=== PATIENT | male | born 1990 | race Caucasian/White ===

== ENCOUNTER 2025-03-28 17:43 | Inpatient (IN) | payer BC, SELFPAY ==
[2025-03-28] VITALS (18 sets, daily range): BP systolic 169–212; BP diastolic 98–151; BMI 37.7; BMI 34.8
[2025-03-28 12:19] LABS: Hematocrit 39.4 % (39.0-52.0); Hemoglobin 14.7 g/dL (13.0-18.0); Mean Corp Hgb Conc. 37.3 g/dL (33.0-37.0); Mean Corpuscular Volume 83.5 fL (80.0-94.0); Nucleated Red Blood Cells % 0 % (-); Platelet Count 307 10^3/uL (130-400); Red Cell Dist. Width 11.9 % (11.5-14.5)
[2025-03-28 12:33] LABS: ALT (SGPT) 19 U/L (0-50); AST (SGOT) 28 U/L (17-59); Albumin 4.9 g/dl (3.5-5.0); Alkaline Phosphatase 56 U/L (38-126); Blood Urea Nitrogen 17 mg/dl (9-20); Calcium 10.0 mg/dl (8.4-10.2); Carbon Dioxide 26 mmol/L (22-30); Chloride 103 mmol/L (98-107); Glucose 148 mg/dl (70-99); Potassium 3.9 mmol/L (3.5-5.1); Sodium 139 mmol/L (135-145); Total Protein 7.9 g/dl (6.3-8.2); eGFR > 60.00
[2025-03-28 12:44] LABS: Troponin I < 0.012 ng/ml
--- NOTE | 2025-03-28 13:16 | W.PN.CD ---
Addendum entered and electronically signed by Chandan Young MD 03/28/25 15:09:
Note if additional IV meds for hypertension required then could consider IV Cardene
Addendum entered and electronically signed by Chandan Young MD 03/28/25 15:08:
I saw and examined the patient.
The QUALITY ANALYST's note was reviewed and I agree with the note.
35-year-old male with history of hypertension hypercholesterolemia, LVH, cognitive delay who was seen in the office by today. Patient has been noncompliant with medical therapy and has not been on his antihypertensive medications for
approximately 2 years. Patient had been on multidrug therapy with atenolol, amlodipine and olmesartan. Patient denies having any symptoms. ECG showing sinus rhythm and a deep anterior T wave inversions as well as T wave inversions in inferior and
lateral leads. Some similarities to previous ECG from 10/27/2018 but T wave versions are even more prominent than on the prior ECG.
.
Hypertensive urgency in setting of noncompliance
- Patient has been off medical therapy for nearly 2 years
- Currently denying symptoms
- IV labetalol
- Can restart olmesartan which she has tolerated in the past.
- Monitor blood pressures closely and would be cautious not to drop blood pressure too quickly.
- Follow-up echocardiogram
- Additional assessment for secondary causes. Patient had renal artery ultrasound in the past additional labs including renin and aldosterone and metanephrines ordered
.
LVH. Reassess with echo
Original Note:
Today's Communication / Plan
-
*This is the consultation summary. Please see scanned full consultation.
Echocardiogram
Start BP management
Impression / Plan
-
I/P: 35M with hypertension, inappropriate sinus tachycardia, dyslipidemia with hypertriglyceridemia, cognitive delay, and former smoker presented to the cardiology office. He was found to have severe hypertension and diffuse T wave inversion on
EKG. He discontinued his medications when he no longer had insurance.
Primary greenhouse superintendent: Dr. Caldwell
Hypertensive urgency
- No renal artery stenosis by ultrasound in 2019
- Mild cLVH on prior echocardiogram
- Prior regimen: atenolol 100 mg daily and amlodipine�olmesartan 10-20 mg daily
- Start Labetalol IV & consider adding olmesartan
- Renin/Tao & metanephrines added
Abnormal EKG
- Diffuse T wave inversion, possible LVH with strain
- Troponin <0.012, chest pain-free
- Echocardiogram
Inappropriate sinus tachycardia
- [place] of approximately 46% in the past
- Was on atenolol 100 mg daily prior to self discontinuation
Dyslipidemia with hypertriglyceridemia
- Fasting lipid panel in a.m.
Cognitive delay, negative genetic testing, mother is concerned for Chirag syndrome
Hyperglycemia, per primary
Former smoker, continue cessation recommended
SUBJECTIVE:
Denies chest pain, dizziness, and syncope/presyncope with exertional activities and at rest.
Physical Exam
Vital Signs/Labs
Vital Signs
Temp Pulse Resp BP Pulse Ox
98.5 F 85 18 205/131 97
03/28/25 11:56 03/28/25 11:56 03/28/25 11:56 03/28/25 11:56 03/28/25 11:56
03/28/25 12:05
03/28/25 12:05
LAB Results
03/28/25
12:05
Troponin I < 0.012
Physical Exam
Constitutional: No acute distress and Comfortable
EENT: Anicteric and Moist mucous membranes
Cardiovascular: Rhythm & rate is regular, Pedal edema is absent and S1S2 is normal
Respiratory: Respiratory effort normal and Lungs clear to auscul.
GI: Soft, Distention absent, Flat and Non tender
Neuro/Psych: Alert and Oriented
Other: Skin (warm and dry without edema)
Data Reviewed
-
Date of Service: March 28, 2025
EKG: Report Reviewed by me
Echo: Ordered by me
Labs: Labs Reviewed by me and Labs Ordered by me
Old Records: Reviewed
--- NOTE | 2025-03-28 14:22 | CARDSERVLU ---
Echocardiogram with [facility] completed after protocol screening completed. Allergies verified.
Patent IV site: __left AC__
IV site flushed with 0.9% NaCl pre and post administration.
Diluted bolus method utilized to enhance visualization of ventricular lomax.
Total volume given: _4.0___ mL
Patient tolerated all procedures well without complications.
[2025-03-28] MEDS: TRANDATE 10 MG IV ×2 (14:43→23:54)
[2025-03-28 14:44] LABS: Glycohemoglobin (HgbA1c) 5.4 % (4.0-5.6)
--- NOTE | 2025-03-28 15:43 | ED.GENMED ---
History of Present Illness
General
Chief Complaint: Blood Pressure Problem
Time Seen by Provider: 03/28/25 13:21
History of Present Illness
History of Present Illness:
35-year-old male with past medical history of hypertension presenting from cardiology office for elevated blood pressure. Patient notes that he has not been taking his blood pressure medication for the past 2 years due to insurance reasons. He saw
cardiology for the first time in 4 years today, or concern for new systolic murmur, elevated blood pressure and some EKG changes. Patient subsequently sent to the hospital for concern of hypertensive urgency. Patient does have some history of
slight cognitive impairment, however is high functioning. Patient currently is asymptomatic. He denies chest pain or difficulty breathing. He denies weakness or numbness to his extremities or additional acute medical complaints
Past History
Past History
ED Past Medical History: Other (Hearing impaired )
ED Past Surgical History: Orthopedic (Right shoulder surgery ) and Other (Bilateral ear surgeries )
Social History
Tobacco: Non-smoker
Personal: Single
Living: with family
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
Phy Exam
Physical Exam
Physical Exam:
General: Well-appearing, no clinical signs of dehydration, nontoxic and in no acute distress
HEENT: protecting airway
Neck: appears supple
CV: Normal heart rate, regular rhythm
Resp: No accessory muscle use, no increased work of breathing
Abd: No distention
Extremities: No deformities, no swelling
Neuro: alert, no focal neurologic deficit
: deferred
Rectal: deferred
Psych: Normal affect
Skin: Intact
Course
Orders/Labs/Results
Orders:
Orders
03/28/25 12:01
Electrocardiogram (*1) Urgent
Reason for Study: Other
Other Reason for Exam: Hypertension
EKG- Treatment ONCE
03/28/25 12:05
CMP [Comprehensive Metabolic Panel] Urgent
Complete Blood Count/With Diff Urgent
Glycohemoglobin (HgbA1c) Urgent
Troponin I Urgent
03/28/25 13:14
Echo 2D MMode Color/Doppler Urgent
Reason for Study: T wave inversion, HTN Urgency
CXR2 [CR Chest - 2 Views ] Routine
Comment:
Reason For Exam: EGAN
03/28/25 13:55
Labetalol HCl [Trandate] 10 mg IV NOW STA
03/28/25 13:56
Add On- LAB Routine
Tests Added?: Hgba1c
03/28/25 14:25
Aldosterone/Renin Act Ratio [S] Urgent
Metanephrines, Plasma (free) [S] Urgent
Abnormal Lab Results
03/28/25
12:05
MCH 31.1 H pg
(27.0-31.0)
MCHC 37.3 H g/dL
(33.0-37.0)
Glucose 148 H mg/dl
(70-99)
03/28/25 12:05
03/28/25 12:05
Vital Signs
Initial and Last Documented VS:
Initial Vital Signs
Temp Pulse Resp BP Pulse Ox
98.5 F 85 18 205/131 97
03/28/25 11:56 03/28/25 11:56 03/28/25 11:56 03/28/25 11:56 03/28/25 11:56
Last Documented Vital Signs
Temp Pulse Resp BP Pulse Ox
98.5 F 71 18 186/111 95
03/28/25 11:56 03/28/25 15:15 03/28/25 15:15 03/28/25 15:00 03/28/25 15:15
MDM/Problems Addressed
MDM/Problems Addressed:
35-year-old male with history of untreated hypertension presenting for elevated blood pressure from cardiology office. Vital signs on arrival significant for high blood pressure.
On arrival, patient currently asymptomatic, however is hypertensive. EKG obtained on arrival shows deep T wave inversions to the lateral and inferior leads which appears acutely changed from prior EKG in 2019. At this time primary concern is for
hypertensive urgency versus emergency. Reassuring that patient is asymptomatic. Cardiology at bedside on patient's arrival given that he was sent in from the cardiology office. Plan for echo, blood pressure control, laboratory analysis, chest
x-ray imaging.
15:40 -Blood pressure slightly improved after labetalol. Per cardiology echo is reassuring and chest x-ray without acute cardiopulmonary disease. Per cardiology recommendation for admission for blood pressure control and continued monitoring.
Plan for hospitalist admission
*Pulse Oximetry
SaO2: 95
Oxygen Mode of Delivery: Room air
Patient hypoxic: no
*EKG
Interpreted by ED Provider?: Yes
EKG Intrepretation Date: 03/28/25
EKG Intrepretation Time: 15:47
Interpretation: abnormal
Comparison EKG: changes noted (10/27/18)
Heart Rate: 84
Rate: normal
Rhythm: sinus
[place]: normal axis
Interval: normal interval
QRS Pattern: wide non-specific
Ischemia: T-wave inversion
*Critical Care Note
Total Time (30-74mins, 75-104mins- exclusive of procedures): Not Applicable
ED Attending Note
-
Portions of this chart may have been created with voice recognition software.� Occasional wrong word or��sound alike� substitutions may have occurred due to the inherent limitations of voice recognition software.
Discharge Plan
Departure
Patient Disposition: Admit
Date of Disposition: 03/28/25
Time of Disposition: 15:43
Presentation/result/management discussed w/ accepting MD/DO: Hospitalist
Patient with high blood pressure during this ER visit?: Yes
Discharge Problem:
Hypertensive urgency
Prescriptions:
No Action
amlodipine 5 MG tablet
5 mg PO DAILY Qty: 14 0RF
Referrals:
NONE,* [Family Provider, Internal Medicine]
Interventions
Interventions:
*Risk Screen - Suicide Last Done: 03/28/25 14:13
*General Assessment Last Done: 03/28/25 14:13
*Neglect/Abuse Screening Last Done: 03/28/25 14:13
*ED- Fall Risk Assessment Last Done: 03/28/25 14:13
*ED COVID-19 Vaccine History Last Done: 03/28/25 14:13
ED- Cardiac Assessment Last Done: 03/28/25 14:13
ED- Neurological Assessment Last Done: 03/28/25 14:13
ED- Pulmonary Assessment Last Done: 03/28/25 14:13
Discharge Date and Time
Print Language: GREENLANDIC
--- NOTE | 2025-03-28 17:10 | W.PN.UPDATE ---
Update Note
Progress Note Update
35-year-old male with primary hypertension, dyslipidemia, inappropriate sinus tachycardia, mild cognitive impairment, obesity is presenting to the hospital today with elevated blood pressure. Patient reports has not been taking medication for 2
years due to insurance purposes, saw cardiology in the office today for the first time in 4 years and was found to have elevated blood pressure with some EKG change at the time. Was sent into the hospital for concerns of hypertensive urgency.
Denies any symptoms such as chest pain, dyspnea, lightheadedness, pain. Of note has family history of sudden cardiac , attended a this past Thursday. Upon arrival blood pressure 212/124 mmHg, diastolic pressure as high as 151 mmHg
though otherwise hemodynamically stable, afebrile, on room air. Labs unremarkable. ECG with NSR, T wave inversions in the lateral leads. Troponin negative. Chest x-ray unremarkable for acute processes. Was given 10 mg IV labetalol in the ED
with blood pressure improvement down to 186/111 mmHg.
AO x 4, NAD, obese. NC/AT, MMM, wide set eyes. Benign cardiopulmonary exam, abdomen benign. No edema or JVD. Palpable pulses. Skin warm and dry. Nonfocal exam.
#Hypertensive urgency. Suspected primary hypertension with nonadherence to medications though unable to rule out secondary causes with high blood pressure at early age. Biochemistry not consistent with hyperaldosteronism though still cannot rule
out. Secondary hypertensive workup with ARR, plasma metanephrines sent on arrival, will follow-up results. Started on as needed IV labetalol. Will start olmesartan 10 mg now and resume amlodipine 5 mg daily. Goal reduction of BP by 25% within
the first 24 hours. Anticipate delayed onset of amlodipine effect. Continue IV labetalol as needed for SBP >170 mmHg.
#Abnormal ECG. T wave inversions laterally, troponin negative x 1. Suspect that this could be a LV strain pattern related to his significant hypertension. Cardiology consulted. Monitor on telemetry for now
#Question Chirag syndrome. Mother with high suspicion for Chirag syndrome however genetic testing in the 90s apparently negative. Predictive value would likely better on more modern genetic testing, may benefit from OP repeat testing.
Diet -- No added salt (<4g)
DVT PPHx -- SQ Lovenox
CODE STATUS -- Full code
I will be admitting Jeremy Harris to telemetry. He is at high risk for worsening morbidity due to acute accelerated hypertension. He will require intensive monitoring of his vitals and readjustment of his antihypertensive regimen. I have
discussed this case with the ED attending and waterproofing mixer. I reviewed the case with the resident and agree with all documentation unless otherwise specified.
Please see full resident H&P for more detail, once available
--- NOTE | 2025-03-28 17:16 | HPS.HSE ---
Family Physician
-
Family Physician: NONE
Chief Complaint
-
High blood pressure
History of Present Illness
35-year-old male with past medical history of hypertension, depression, anxiety, bilateral hearing impairment worse on left side was sent by his cost specialist to ED for having high blood pressure. He used to manage his HTN until 2 years ago with
Atenolol and Olmesartan. He changed his job and did not have insurance so he stopped taking his BP medications. ^ months ago when he went to see a dentist they told him about his high BP and did not proceed with procedure that's how he end up
getting an appt with cost specialist. This week he was having a stressful week because of his cousine's sudden from heart attack. This morning he reports feeling fine like his usual and did not have any symptoms. Usually he drinks 3 cokes a day
but did not have any today. He does not smoke or drink alcohol. He denies headache, blurred vision, chest pain or SOB.
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
Medical History
Past Medical History
Past Medical History: Reports HTN and Psychiatric
Additional Past Medical History:
depression
anxiety
difficulty falling a sleep
Past Surgical History: Reports Other
Additional Past Surgical History:
Right shoulder surgery for nerve impingement (nerve decompression) in 2009
Sinus surgery for cystectomy in 2022
Ear tubes 1-2 y/o
Social History
Tobacco: Non-smoker
Alcohol: None
Drug: Marijuana (medical marijuana)
Living: With Family
Employment: Employed
Family History
Family History: Hypertension and Other (Father-hypertension Dx teenager, multiple strokes, afib )
Allergies / Home Medications
Allergies reflects when Allergies were last updated in [facility].
Home Medications with original date entered in [facility]
Allergy/Medication List:
None
Review of Systems
-
History Source: Patient
Constitutional: Reports No Symptoms
EENT: Reports Other (Hearing impaired bilaterally)
Respiratory: Reports No Symptoms
Cardiac: Reports No Symptoms
Abdomen/GI: Reports No Symptoms
: Reports No Symptoms
Musculoskeletal: Reports No Symptoms
Skin: Reports No Symptoms
Neurological: Reports No Symptoms
Psych: Reports Calm
Physical Exam
Vital Signs
Vital Signs
Temp Pulse Resp BP Pulse Ox
98.5 F 94 15 189/116 96
03/28/25 11:56 03/28/25 16:15 03/28/25 16:15 03/28/25 16:10 03/28/25 16:15
Physical Exam
General: Well Developed, Well Nourished, No Apparent Distress and Comfortable
HEENT: NormoCephalic and Hearing Impaired
Respiratory: Clear
Cardiac: S1/S2 and Regular Rhythm
Breast: Deferred by me
GI: Soft, Non Tender, Non Distended and Normal Bowel Sounds
Rectal: Deferred by Provider
Genito-urinary: Deferred by me
Musculoskeletal: No Clubbing, No Cyanosis and No Edema
Skin: Warm
Neuro: AO x 3
Psych: Calm
Laboratory Results
-
03/28/25 12:05
03/28/25 12:05
Laboratory Results
Total Bilirubin 0.7 mg/dl (0.2-1.3) 03/28/25 12:05
AST 28 U/L (17-59) 03/28/25 12:05
ALT 19 U/L (0-50) 03/28/25 12:05
Alkaline Phosphatase 56 U/L (38-126) 03/28/25 12:05
Troponin I < 0.012 ng/ml 03/28/25 12:05
Impression/Plan
-
IMPRESSION: 35-year-old male with past medical history of hypertension, depression, anxiety, bilateral hearing impairment worse on left side was sent by his cost specialist to ED for having very high blood pressure.
PLAN
#Hypertensive urgency
#Essential Hypertension vs secondary hypertension
-BP was 189/116 elevated without acute evidence of end organ damage
-Received 10mg IV Labetalol at ED. Continue as needed if SBP >170
-Admit to telemetry
-Will restart previous antihypertensive meds. Goal is gradual reduction by 25% first 24 hours. Goal BP <160/100.
-Start Olmesartan 10mg QD
-Start Amlodipine 5mg QD
-Check AM cortisol level- r/o [place] syndrome
-Aldosterone/Renin ratio was sent at ED- will follow results
-Low sodium diet (<4g)
-Monitor BP
ECG
-ST and MARKED T WAVE ABNORMALITY CONSIDER ANTEROLATERAL ISCHEMIA
Troponin negative
T wave inversions especially on precordial and lateral leads suspect HTN related LV strain pattern
Cardiology consulted
ECHO
1. Normal left ventricular systolic function.
2. Estimated ejection fraction 60 to 65%.
3. Mild concentric LVH.
Doppler Study US from 2019
-Suggest no Renal artery stenosis
#??Chirag syndrome
-Mom suspicious about Chirag syndrome because of his phenotype
-Genetic testing was done in 's and was negative
-PPV might be higher in modern setting
#Anxiety
#Mild Depression
-Continue Sertraline 100mg
-Continue THC
#Insomnia
-Continue Risperidone
DVT prophylaxis: SQ Lovenox
Full code
[2025-03-28] MEDS: LOVENOX 40 MG SC (20:03)
[2025-03-28] MEDS: NORVASC 5 MG PO (20:13)
[2025-03-28] MEDS: BENICAR 10 MG PO (20:14)
[2025-03-28] MEDS: RISPERDAL 2 MG PO (21:43)
--- NOTE | 2025-03-29 02:35 | DOWNTIME ---
There was a [employer] Downtime on 03/29/2025 from 0100 to 03/29/2025 at 0215. Downtime documentation of patient's care, including medication administrations, has been reconciled in the electronic record per guidelines. Refer to the
patient's paper chart under the miscellaneous tab to see printed paper medication records and downtime forms.
[2025-03-29 03:00] VITALS: BP 140/88
[2025-03-29 03:48] VITALS: BMI 34.4
[2025-03-29 06:00] VITALS: BMI 34.4
[2025-03-29 06:45] LABS: Hematocrit 38.7 % (39.0-52.0); Hemoglobin 14.3 g/dL (13.0-18.0); Mean Corp Hgb Conc. 37.0 g/dL (33.0-37.0); Mean Corpuscular Volume 85.6 fL (80.0-94.0); Platelet Count 291 10^3/uL (130-400); Red Cell Dist. Width 12.0 % (11.5-14.5)
--- NOTE | 2025-03-29 07:20 | W.PN.HOSP.TC ---
Today's Communication/Plan
-
Continue Anti-htn meds
Discharge today
Assessment / Plan
Assessment / Plan
IMPRESSION: 35-year-old male with past medical history of hypertension, depression, anxiety, bilateral hearing impairment worse on left side was sent by his tack maker to ED for having very high blood pressure.
PLAN
#Hypertensive urgency
#Essential Hypertension vs secondary hypertension
-BP was 189/116 elevated without acute evidence of end organ damage. He discontinued his anti-HTN meds 2 years ago.
-Received 10mg IV Labetalol at ED. Continue as needed if SBP >170
-Admit to telemetry
-Will restart previous antihypertensive meds. Goal is gradual reduction by 25% first 24 hours. Goal BP <160/100.
-Start Olmesartan 10mg QD
-Start Amlodipine 5mg QD
-Check AM cortisol level- r/o [place] syndrome
-Aldosterone/Renin ratio was sent at ED- will follow results
-Low sodium diet (<2g)
-Monitor BP
-Overnight his BP was elevated up to 206/120. Currently well controlled 140/88.
ECG
-ST and MARKED T WAVE ABNORMALITY CONSIDER ANTEROLATERAL ISCHEMIA
Troponin negative
T wave inversions especially on precordial and lateral leads suspect HTN related LV strain pattern
Cardiology consulted
ECHO
1. Normal left ventricular systolic function.
2. Estimated ejection fraction 60 to 65%.
3. Mild concentric LVH.
Doppler Study US from 2019
-Suggest no Renal artery stenosis
#??Chirag syndrome
-Mom suspicious about Chirag syndrome because of his phenotype
-Genetic testing was done in s and was negative
-PPV might be higher in modern setting- recommend genetics test
#Anxiety
#Mild Depression
-Continue Sertraline 100mg
-Continue THC
#Insomnia
-Continue Risperidone
DVT prophylaxis: SQ Lovenox
Full code
Anticipated Discharge: Today
Subjective/Interval History
-
Date of Service: March 29, 2025
He was able to sleep good. He reports feeling good. HE does not have any complaints. Denies chest pain, headache, palpitatioons, sob.
Objective Data
-
Labs:
Laboratory Results
03/29/25
06:19
WBC 5.9
Hgb 14.3
Hct 38.7 L
Plt Count 291
Sodium Pending
Potassium Pending
Chloride Pending
Carbon Dioxide Pending
BUN Pending
Creatinine Pending
Glucose Pending
Calcium Pending
Vital Signs:
Vital Signs
Temp Pulse Resp BP Pulse Ox
97.6 F 73 16 140/88 96
03/29/25 03:00 03/29/25 03:00 03/29/25 03:00 03/29/25 03:00 03/29/25 03:00
Review of Systems
-
History Source: Patient
Constitutional: Reports No Symptoms
EENT: Reports No Symptoms Reported and Hearing Loss (bl hearing impairment)
Respiratory: Reports No Symptoms
Cardiac: Reports No Symptoms
Abdomen/GI: Reports No Symptoms
Genitourinary: Reports No Symptoms
Musculoskeletal: Reports No Symptoms
Skin: Reports No Symptoms
Neuro: Reports No Symptoms
Physical Exam
-
General: Well Developed, Well Nourished, No Apparent Distress and Conversant
HEENT: Normocephalic and Atraumatic
Respiratory: Clear to Auscultation
Cardiac: Regular Rhythm and S1/S2
Breast: Deferred by me
GI: Soft, Nontender and Nondistended
Musculoskeletal: No Clubbing, No Cyanosis and No Edema
Skin: Warm and Dry
Neuro: AO x 3
Psych: Calm
[2025-03-29 07:22] LABS: Blood Urea Nitrogen 16 mg/dl (9-20); Calcium 9.1 mg/dl (8.4-10.2); Carbon Dioxide 26 mmol/L (22-30); Chloride 104 mmol/L (98-107); Estimated Creatinine Clearance > 125 ml/min; Glucose 98 mg/dl (70-99); Potassium 3.8 mmol/L (3.5-5.1); Sodium 138 mmol/L (135-145); eGFR > 60.00
[2025-03-29 07:30] VITALS: BP 137/83
[2025-03-29 07:49] LABS: Cortisol, Random 9.0 ug/dl
[2025-03-29] MEDS: BENICAR 10 MG PO (08:15)
[2025-03-29] MEDS: NORVASC 5 MG PO (08:16)
[2025-03-29] MEDS: ZOLOFT 100 MG PO (08:16)
--- NOTE | 2025-03-29 10:28 | W.PN.CD ---
Today's Communication / Plan
-
BP has improved with addition of olmesartan 10mg daily, amlodipine 5mg daily: continue
discharge planning
please call us with additional questions
Impression / Plan
-
I/P: 35M with hypertension, inappropriate sinus tachycardia, dyslipidemia with hypertriglyceridemia, cognitive delay, and former smoker presented to the cardiology office. He was found to have severe hypertension and diffuse T wave inversion on
EKG. He discontinued his medications when he no longer had insurance.
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 Caldwell
Hypertensive urgency-- in setting of med non-compliance--now resolved with med mgmt
- No renal artery stenosis by ultrasound in 2019
- Mild cLVH on prior echo: echo this admission EF 60-65%, no sig valve disease
- Renin/Tao & metanephrines added
- BP has improved with addition of olmesartan 10mg daily, amlodipine 5mg daily: continue
Abnormal EKG
- Diffuse T wave inversion, possible LVH with strain
- Troponin <0.012, chest pain-free
- Echocardiogram stable with LVH--hypertensive heart disease with LVH
Inappropriate sinus tachycardia--HR trend normal on tele
- [place] of approximately 46% in the past
- Was on atenolol 100 mg daily prior to self discontinuation: remain off of this med
Dyslipidemia with hypertriglyceridemia
- outpatient f/u
Cognitive delay, negative genetic testing, mother is concerned for Chirag syndrome
Hyperglycemia, per primary
Former smoker, continue cessation recommended
Physical Exam
Vital Signs/Labs
Vital Signs
Temp Pulse Resp BP Pulse Ox
97.4 F 70 16 137/83 98
03/29/25 07:30 03/29/25 07:30 03/29/25 07:30 03/29/25 07:30 03/29/25 07:30
03/28/25 03/29/25 03/30/25
06:59 06:59 06:59
Actual Weight 102.739 kg
03/29/25 06:19
03/29/25 06:19
LAB Results
03/28/25
12:05
Troponin I < 0.012
Physical Exam
Constitutional: Comfortable
EENT: Moist mucous membranes
Cardiovascular: Rhythm & rate is regular, Pedal edema is absent, JVD pressure is normal and Systolic murmur present
Respiratory: Respiratory effort normal and Lungs clear to auscul.
Neuro/Psych: AO x 3
Data Reviewed
-
Date of Service: March 29, 2025
EKG: Other (Tele: SR 60s)
Labs: Labs Reviewed by me
[2025-03-29 12:00] VITALS: BP 136/77
--- NOTE | 2025-03-29 12:32 | W.DCSUMMARY ---
Documented by User: Roxana Hurst MD, Resident 03/29/25 12:47
Discharge Summary
Discharge Data
Date of Admission: 03/28/25
Date of Discharge: 03/29/25
-
Pending Results: Yes
Additional Pending Results:
Renin activity, aldosterone, aldosterone/renin ratio, plasma metanephrine, plasma normetanephrine, PI metanephrine interpret, urine creatinine per volume, Urine 5 HIAA, urine 5 HIAA/creatinine ratio, urine 5 HIAA interpret
Hospital Course
Discharging Physician : Dr. Roxana Hurst, Dr. Issa Canchola
Disposition : Home
Primary care physician : No PCP
Principal Discharge diagnosis : Hypertensive urgency
Chronic Discharge diagnosis : hypertension, anxiety, depression, insomnia
Hospital Course : 35-year-old male with pmh of hypertension hypercholesterolemia, LVH, bilateral hearing impairment who was seen in the office by Entomology Teacher on 03/28/2025 was sent to ED for having very high blood pressure. Patient
has been noncompliant with medical therapy and has not been on his antihypertensive medications for approximately 2 years. Patient had been on multidrug therapy with atenolol, amlodipine and olmesartan. His BP was 189/116. Patient denied having any
clinical symptoms. He was admitted for 1 night and given IV labetalol, PO amlodipine 5mg, olmesartan 10mg. His BP is 140/88 on discharge.
He has pending lab tests : renin activity, aldosterone, aldosterone/renin ratio, plasma metanephrine, plasma normetanephrine, PI metanephrine interpret, urine creatinine per volume, Urine 5 HIAA, urine 5 HIAA/creatinine ratio, urine 5 HIAA interpret
Follow-up with your PCP within a week
Follow-up with cardiology on 04/24/2025 8:40AM
Continue Amlodipine 5mg, Olmesartan 10mg daily. Continue low-dose sodium diet <4g
Discuss with PCP regarding further genetic testing about Chirag syndrome.
Important imaging findings :
ECG
-ST and MARKED T WAVE ABNORMALITY CONSIDER ANTEROLATERAL ISCHEMIA
(T wave inversions especially on precordial and lateral leads suspect HTN related LV strain pattern)
ECHO
1. Normal left ventricular systolic function.
2. Estimated ejection fraction 60 to 65%.
3. Mild concentric LVH.
Procedure findings : None
Discharge Plan
-
Patient Disposition: Home (Routine Discharge)
Discharge Diagnosis/Procedures: Hypertensive urgency
Mild depression
Anxiety
Insomnia
Condition: Good
Diet: Low Sodium
Activity: No restrictions
Driving Restrictions: As prior to admission
Bathing Restrictions: None
Referrals:
Kira Da Silva CRNP [Specified Professional Personl, Cardiology] - 04/24/25 8:40 am
NONE,* [Family Provider, Internal Medicine]
Additional Discharge Medication Instructions: Continue taking anti hypertension medications every day
Olmesartan 10mg every day
Amlodipine 5mg every day
Consume low Sodium diet (<4g)
Follow up with PCP within a week. You have pending test results.
Follow up with PCP regarding genetic testing for possible Chirag Syndrome.
Follow up with Entomology Teacher on 04/24/2025 at 8:40 AM
Prescriptions:
New
olmesartan 5 mg tablet
10 mg PO DAILY Qty: 30 0RF
amlodipine 5 mg tablet
5 mg PO DAILY Qty: 30 0RF
Continued
sertraline 100 mg Tablet
100 mg PO DAILY
risperidone [Risperdal] 2 mg Tablet
2 mg PO HS
Medical Marijuana
1 drp PO BIDPRN PRN (Reason: anxiety)
Discharge Orders:
Discharge Patient (As Directed); Ordered 03/29/25
Ordered By: Roxana uHrst
Discharge Date and Time
Print Language: EQUATORIAL GUINEAN

Documented by User: Issa Canchola DO 03/29/25 13:10
Discharge Summary
Discharge Data
Date of Admission: 03/28/25
Date of Discharge: 03/29/25
Total time spent discharging patient (in min): 32
Discharge Plan
-
Patient Disposition: Home (Routine Discharge)
Discharge Diagnosis/Procedures: Hypertensive urgency
Mild depression
Anxiety
Insomnia
Condition: Good
Diet: Low Sodium
Activity: No restrictions
Driving Restrictions: As prior to admission
Bathing Restrictions: None
Referrals:
Kira Da Silva CRNP [Specified Professional Personl, Cardiology] - 04/24/25 8:40 am
NONE,* [Family Provider, Internal Medicine]
Additional Discharge Medication Instructions: Continue taking anti hypertension medications every day
Olmesartan 10mg every day
Amlodipine 5mg every day
Consume low Sodium diet (<4g)
Follow up with PCP within a week. You have pending test results.
Follow up with PCP regarding genetic testing for possible Chirag Syndrome.
Follow up with Entomology Teacher on 04/24/2025 at 8:40 AM
Prescriptions:
New
olmesartan 5 mg tablet
10 mg PO DAILY Qty: 30 0RF
amlodipine 5 mg tablet
5 mg PO DAILY Qty: 30 0RF
Continued
sertraline 100 mg Tablet
100 mg PO DAILY
risperidone [Risperdal] 2 mg Tablet
2 mg PO HS
Medical Marijuana
1 drp PO BIDPRN PRN (Reason: anxiety)
Discharge Orders:
Discharge Patient (As Directed); Ordered 03/29/25
Ordered By: Roxana Hurst
Discharge Date and Time
Print Language: EQUATORIAL GUINEAN
--- NOTE | 2025-03-29 13:19 | CM ---
Patient seen at bedside with mom
IA completed
IMM n/a
discharged today
Lives with mom in a 2 story home, 2 [address], flight to bed/bath
PLOF: independent
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
Denies DME
Denies vn/rehab
pcp: None currently - Information given to patient/mom on [facility] residency clinic, will call
Pharmacy: [address], [place]
PLAN: Home, no needs
mom to transport
[2025-04-01 02:25] LABS: Aldosterone/Renin Activ Ratio 3.1 ratio (<=25.0); Renin Activity Results 4.2 ng/mL/hr
== END 2025-03-29 15:07 | disposition home or self-care (01) | DRG 305 ==
LOC: 3 WEST ACU 17:43
PROVIDERS: Nurse Practitioner Gerontology; ADMITTING PHYSICIAN Internal Medicine; EMERGENCY PHYSICIAN Student in an Organized Health Care Education/Training Program
DX: I16.0 Hypertensive urgency (principal); Q93.82 Williams syndrome; E78.00 Pure hypercholesterolemia, unspecified; T46.5X6A Underdosing of other antihypertensive drugs, initial encounter; Z87.891 Personal history of nicotine dependence; R00.0 Tachycardia, unspecified; E78.1 Pure hyperglyceridemia; F32.A Depression, unspecified; F41.9 Anxiety disorder, unspecified; G31.84 Mild cognitive impairment of uncertain or unknown etiology; G47.00 Insomnia, unspecified; H91.93 Unspecified hearing loss, bilateral; R94.31 Abnormal electrocardiogram [ECG] [EKG]; I10 Essential (primary) hypertension; Z91.148 Patient's other noncompliance with medication regimen for other reason; Z82.49 Family history of ischemic heart disease and other diseases of the circulatory system
CPT/HCPCS: 71046; 80048; 80053; 82088; 82533; 83036; 83497; 83835; 84244; 84484; 85025; 85027; 93005; 93306; 96374; 99285

== ENCOUNTER → 2025-06-20 13:16 | Outpatient (REF) | payer BC, SELFPAY ==
[2025-06-20 13:48] LABS: Urine Character Clear (Clear)
[2025-06-20 13:49] LABS: Hematocrit 41.7 % (39.0-52.0); Hemoglobin 15.3 g/dL (13.0-18.0); Mean Corp Hgb Conc. 36.7 g/dL (33.0-37.0); Mean Corpuscular Volume 85.6 fL (80.0-94.0); Nucleated Red Blood Cells % 0 % (-); Platelet Count 309 10^3/uL (130-400); Red Cell Dist. Width 12.5 % (11.5-14.5)
[2025-06-20 14:16] LABS: Urine Squamous Cell 0-2 /LPF (Few)
[2025-06-20 14:50] LABS: ALT (SGPT) 17 U/L (0-50); AST (SGOT) 26 U/L (17-59); Albumin 5.2 g/dl (3.5-5.0); Alkaline Phosphatase 63 U/L (38-126); Blood Urea Nitrogen 12 mg/dl (9-20); Calcium 10.0 mg/dl (8.4-10.2); Carbon Dioxide 28 mmol/L (22-30); Chloride 101 mmol/L (98-107); Glucose 106 mg/dl (70-99); HDL Cholesterol 42 mg/dl; LDL Cholesterol, Calculated 138 mg/dl; Potassium 4.5 mmol/L (3.5-5.1); Sodium 137 mmol/L (135-145); Total Protein 8.6 g/dl (6.3-8.2); Very Low Density Lipoprotein 39 mg/dl (0-30); eGFR > 60.00
[2025-06-20 16:48] LABS: TSH 1.52 uIU/ml (0.47-4.68)
== END ==
LOC: REG 13:16
PROVIDERS: ATTENDING PHYSICIAN Student in an Organized Health Care Education/Training Program
DX: I10 Essential (primary) hypertension (principal); E78.1 Pure hyperglyceridemia; E66.9 Obesity, unspecified
CPT/HCPCS: 36415; 80053; 80061; 81003; 81015; 84443; 85025